=== PATIENT | female | born 1980 | race American Indian/Alaskan Native ===

== ENCOUNTER 2016-12-14 08:40 | Emergency (ER) | payer OTHER, BC ==
[2016-12-14 09:59] VITALS: BP 155/92
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
== END 2016-12-14 12:29 ==
LOC: ED 08:40
DX: Z53.21 Procedure and treatment not carried out due to patient leaving prior to being seen by health care provider (principal)
CPT/HCPCS: 72070